=== PATIENT | female | born 1940 | race Caucasian/White ===

== ENCOUNTER 2025-06-18 20:36 | Inpatient (IN) | payer MEDICARE, OTHER ==
[2025-06-18] MEDS ORDERED: Ketorolac Tromethamine 30 MG (1 mL) VIAL ONE (20:54)
[2025-06-18 20:59] LABS: Glucose, Urine (Dipstick) Normal (Negative); Leukocyte 500 (Negative); Protein, Urine (Dipstick) Negative (Neg-Trace); Specific Gravity, Urine 1.010 (1.005-1.030)
[2025-06-18 21:11] LABS: Bacteria/HPF 4+ HPF (None Seen); CAUTI Indications for Culture Alt mental st,lethar; Mucous/LPF 1+ LPF (<2+); RBC/HPF 0-3 HPF (0-3); WBC/HPF 21-50 HPF (0-3)
[2025-06-18 21:12] LABS: Urine Culture Reflex Yes Yes
[2025-06-18 21:20] LABS: #Basophils 0.16 10x3/uL (0.0-0.2); #Eosinophils 0.36 10x3/uL (0.0-0.5); #Monocytes 1.73 10x3/uL (0.0-1.1); #Neutrophils 14.56 10x3/uL (1.5-8.4); %Basophils 0.8 % (0.0-2.0); %Eosinophils 1.9 % (0.0-6.0); %Lymphocytes 9.9 % (18.0-47.0); %Monocytes 9.2 % (0.0-10.0); %Neutrophils 77.3 % (40.0-75.0); Hematocrit 41.4 % (34.9-44.5); Hemoglobin 14.0 g/dL (12.0-15.5); Mean Corpuscular Hemoglobin 32.3 pg (27.0-33.0); Mean Corpuscular Volume 95.4 fL (81.6-98.3); Platelet Count 270 10x3/uL (150-450); Red Blood Cell (RBC) Count 4.34 10x6/uL (3.90-5.03); White Blood Cell (WBC) Count 18.85 10x3/uL (3.5-10.5)
[2025-06-18 21:34] LABS: ALT (SGPT) 13 U/L (Less than 34); AST (SGOT) 26 U/L (11-34); Albumin 3.1 g/dL (3.1-4.5); Alkaline Phosphatase 111 U/L (40-110); Anion Gap 12 mmol/L (10-20); BUN (Urea Nitrogen) 14 mg/dL (9.8-20.1); Bilirubin, Total 0.4 mg/dL (0.3-1.2); Calc. Creatinine Clearance 0 mL/min (70-130); Calcium 8.6 mg/dL (7.8-10.44); Carbon Dioxide 23 mmol/L (23-31); Chloride 105 mmol/L (98-107); Globulin 3.8 g/dL (2.4-3.5); Glucose 87 mg/dL (83-110); Potassium 3.4 mmol/L (3.5-5.1); Sodium 137 mmol/L (136-145)
[2025-06-18] MEDS ORDERED: cefTRIAXone (ROCEPHIN) 1 GM VIAL ONE (22:03)
[2025-06-18] MEDS ORDERED: Calcium Carbonate 500 MG ChewTAB PO PRN (22:35)
[2025-06-18] MEDS ORDERED: Senokot S 8.6-50 MG TAB PO PRN (22:35)
[2025-06-18] MEDS ORDERED: Ondansetron PF 4 MG/2 ML Vial IVP PRN (22:35)
[2025-06-19 03:20] VITALS: BMI 24.2
[2025-06-19] MEDS: FLU (Fluad Triv) 25-26 (65UP)PF 45 MCG/0.5 ML Syringe IM ONE (04:29)
[2025-06-19 04:39] LABS: #Basophils 0.12 10x3/uL (0.0-0.2); #Eosinophils 0.44 10x3/uL (0.0-0.5); #Monocytes 1.45 10x3/uL (0.0-1.1); #Neutrophils 8.53 10x3/uL (1.5-8.4); %Basophils 0.9 % (0.0-2.0); %Eosinophils 3.4 % (0.0-6.0); %Lymphocytes 17.0 % (18.0-47.0); %Monocytes 11.3 % (0.0-10.0); %Neutrophils 66.8 % (40.0-75.0); Hematocrit 39.5 % (34.9-44.5); Hemoglobin 13.6 g/dL (12.0-15.5); Mean Corpuscular Hemoglobin 32.9 pg (27.0-33.0); Mean Corpuscular Volume 95.4 fL (81.6-98.3); Platelet Count 251 10x3/uL (150-450); Red Blood Cell (RBC) Count 4.14 10x6/uL (3.90-5.03); White Blood Cell (WBC) Count 12.79 10x3/uL (3.5-10.5)
[2025-06-19 04:55] LABS: ALT (SGPT) 11 U/L (Less than 34); AST (SGOT) 18 U/L (11-34); Albumin 2.9 g/dL (3.1-4.5); Alkaline Phosphatase 95 U/L (40-110); Anion Gap 9 mmol/L (10-20); BUN (Urea Nitrogen) 10 mg/dL (9.8-20.1); Bilirubin, Total 0.6 mg/dL (0.3-1.2); Calc. Creatinine Clearance 73 mL/min (70-130); Calcium 8.1 mg/dL (7.8-10.44); Carbon Dioxide 25 mmol/L (23-31); Chloride 109 mmol/L (98-107); Globulin 3.4 g/dL (2.4-3.5); Glucose 87 mg/dL (83-110); Magnesium 1.9 mg/dL (1.6-2.6); Potassium 3.0 mmol/L (3.5-5.1); Sodium 140 mmol/L (136-145)
[2025-06-19] MEDS: Aspirin 81 mg Enteric Coated Tablet PO SCH (09:36)
[2025-06-19] MEDS: Sertraline 100 MG TAB PO SCH (09:36)
[2025-06-19] MEDS: Divalproex Sodium 125 mg Sprinkle Capsule PO SCH (09:36)
[2025-06-19] MEDS: Enoxaparin 40 MG (0.4 mL) SYRINGE SC SCH (09:36)
[2025-06-19] MEDS: Acetaminophen 325 MG TAB PO PRN (12:41)
[2025-06-19] MEDS: Lisinopril 10 MG TAB PO SCH (14:10)
[2025-06-19] MEDS: Methocarbamol 500 MG TAB PO SCH (18:14)
[2025-06-19] MEDS: cefTRIAXone (ROCEPHIN) 1 GM VIAL ONE (20:42)
[2025-06-19] MEDS: Memantine 5 MG TAB PO SCH (20:48)
[2025-06-19] MEDS: cefTRIAXone\\ROCEPHIN 1 GM in Sodium Chloride 0.9% 100 ML IVPB SCH (21:36)
[2025-06-20 04:09] LABS: #Basophils 0.15 10x3/uL (0.0-0.2); #Eosinophils 0.28 10x3/uL (0.0-0.5); #Monocytes 1.34 10x3/uL (0.0-1.1); #Neutrophils 10.40 10x3/uL (1.5-8.4); %Basophils 1.1 % (0.0-2.0); %Eosinophils 2.0 % (0.0-6.0); %Lymphocytes 13.0 % (18.0-47.0); %Monocytes 9.5 % (0.0-10.0); %Neutrophils 73.6 % (40.0-75.0); Hematocrit 42.2 % (34.9-44.5); Hemoglobin 14.7 g/dL (12.0-15.5); Mean Corpuscular Hemoglobin 32.5 pg (27.0-33.0); Mean Corpuscular Volume 93.2 fL (81.6-98.3); Platelet Count 321 10x3/uL (150-450); Red Blood Cell (RBC) Count 4.53 10x6/uL (3.90-5.03); White Blood Cell (WBC) Count 14.12 10x3/uL (3.5-10.5)
[2025-06-20 04:21] LABS: Anion Gap 12 mmol/L (10-20); BUN (Urea Nitrogen) 9 mg/dL (9.8-20.1); Calc. Creatinine Clearance 72 mL/min (70-130); Calcium 8.6 mg/dL (7.8-10.44); Carbon Dioxide 21 mmol/L (23-31); Chloride 106 mmol/L (98-107); Glucose 95 mg/dL (83-110); Potassium 3.4 mmol/L (3.5-5.1); Sodium 136 mmol/L (136-145)
[2025-06-20] MEDS: Metoprolol Succinate XL 50 MG ER.TAB PO SCH (08:39)
[2025-06-20] MEDS: Lisinopril 10 MG TAB PO SCH (08:40)
[2025-06-20] MEDS: Potassium Bicarbonate/Cit Ac 20 MEQ TAB PO SCH (13:30)
[2025-06-21 04:35] LABS: #Basophils 0.15 10x3/uL (0.0-0.2); #Eosinophils 0.35 10x3/uL (0.0-0.5); #Monocytes 1.69 10x3/uL (0.0-1.1); #Neutrophils 13.63 10x3/uL (1.5-8.4); %Basophils 0.9 % (0.0-2.0); %Eosinophils 2.0 % (0.0-6.0); %Lymphocytes 9.0 % (18.0-47.0); %Monocytes 9.6 % (0.0-10.0); %Neutrophils 77.5 % (40.0-75.0); Hematocrit 46.2 % (34.9-44.5); Hemoglobin 15.7 g/dL (12.0-15.5); Mean Corpuscular Hemoglobin 32.0 pg (27.0-33.0); Mean Corpuscular Volume 94.1 fL (81.6-98.3); Platelet Count 317 10x3/uL (150-450); Red Blood Cell (RBC) Count 4.91 10x6/uL (3.90-5.03); White Blood Cell (WBC) Count 17.58 10x3/uL (3.5-10.5)
[2025-06-21 04:50] LABS: Anion Gap 13 mmol/L (10-20); BUN (Urea Nitrogen) 15 mg/dL (9.8-20.1); Calc. Creatinine Clearance 70 mL/min (70-130); Calcium 9.1 mg/dL (7.8-10.44); Carbon Dioxide 23 mmol/L (23-31); Chloride 104 mmol/L (98-107); Glucose 100 mg/dL (83-110); Potassium 3.9 mmol/L (3.5-5.1); Sodium 136 mmol/L (136-145)
[2025-06-21] MEDS ORDERED: Methocarbamol 500 MG TAB PO PRN (07:56)
[2025-06-21] MEDS: Cefaclor 250 MG CAP PO SCH (12:41)
[2025-06-21] MEDS ORDERED: HYDROcodone/Acetaminophen 5/325 mg Tablet PO PRN (18:50)
[2025-06-21 21:08] VITALS: BP 186/90; TEMP 98.5
[2025-06-22] MEDS ORDERED: Cefaclor 250 MG CAP PO SCH (06:00)
== END 2025-06-21 22:00 | disposition still patient (30) | DRG 871 ==
LOC: CSHERS 20:36 → SUATTDRO 20:36 → CSHTELE 21:44
PROVIDERS: ADMIT Internal Medicine; ATTEND Student in an Organized Health Care Education/Training Program
DX: A41.51 Sepsis due to Escherichia coli [E. coli] (principal); G93.41 Metabolic encephalopathy; S72.002A Fracture of unspecified part of neck of left femur, initial encounter for closed fracture; N39.0 Urinary tract infection, site not specified; E87.6 Hypokalemia; Z66 Do not resuscitate; I10 Essential (primary) hypertension; G30.9 Alzheimer's disease, unspecified; R13.10 Dysphagia, unspecified; E78.5 Hyperlipidemia, unspecified; I48.91 Unspecified atrial fibrillation; F02.80 Dementia in other diseases classified elsewhere, unspecified severity, without behavioral disturbance, psychotic disturbance, mood disturbance, and anxiety; Z86.718 Personal history of other venous thrombosis and embolism; Z79.82 Long term (current) use of aspirin; Z79.899 Other long term (current) drug therapy
CPT/HCPCS: 36415; 71045; 80048; 80053; 81001; 83605; 83735; 85025; 87040; 87077; 87086; 87186; 93005; 94760; 96365; 96375; J0696; J1650; J1885; J2185; J2272; J7030